=== PATIENT | female | born 1945 | race Caucasian/White ===

== ENCOUNTER → 2020-10-18 18:46 | Outpatient (CLI) | payer MEDICARE | END | disposition home or self-care (01) | LOC: D.LABREF 18:46 | PROVIDERS: ATTEND Orthopaedic Surgery | DX: M17.12 Unilateral primary osteoarthritis, left knee (principal) ==

== ENCOUNTER 2020-12-05 12:07 | Observation (INO) | payer MEDICARE, OTHER ==
[2020-11-28 11:11] LABS: BILIRUBIN NEGATIVE (NEGATIVE); KETONE NEGATIVE mg/dL (< 1+); NITRITE NEGATIVE (NEGATIVE); UROBILINOGEN NORMAL mg/dL (< 2)
[2020-11-28 12:57] LABS: BASOPHILS 0.8 % (0-2); EOSINOPHILS 1.2 % (0-7); HEMATOCRIT 40.7 % (36.0-48.0); HEMOGLOBIN 13.1 g/dL (12-16); LYMPHOCYTES 34.6 % (15-50); MCH 29.7 pg (26.0-34.0); MCHC 32.2 g/dL (31.0-37.0); MCV 92.5 fL (80.0-100.0); MEAN PLATELET VOLUME 8.8 fL (7.4-10.4); MONOCYTES 6.5 % (2-11); NEUTROPHILS 56.9 % (40-80); PLATELET COUNT 254 10x3/uL (130-400); RDW 13.7 % (11.5-14.5); WBC 9.3 10x3/uL (4.8-10.8)
[2020-11-28 13:05] LABS: CALC OSMOLALITY 281 mosm/kg (275-300); CALCIUM 8.8 mg/dL (8.5-10.1); CARBON DIOXIDE 27.1 mmol/L (21.0-32.0); CHLORIDE - SERUM 103 mmol/L (98-107); CREATININE - SERUM 0.6 mg/dL (0.6-1.3); GLUCOSE 142 mg/dL (74-106); POTASSIUM - SERUM 3.4 mmol/L (3.5-5.1); SODIUM 140 mmol/L (136-145); UREA NITROGEN 14 mg/dL (7-18); eGFR NON AFRICAN AMERICAN > 90 mL/min (90-120)
[2020-11-28 13:11] LABS: APTT 32.2 SECONDS (22.8-39.4); INR 1.04 (0.85-1.17); PROTIME 12.6 SECONDS (11.6-15.0)
[2020-12-05] VITALS (13 sets, daily range): BP systolic 119–159; BP diastolic 63–98; Ht 165.1 cm; Wt 90.9 kg
[~2020-12-05] VITALS: Ht 165.1 cm; Wt 90.9 kg
--- NOTE | 2020-12-05 10:43 | NUR ---
CAUTERY PAD PLACED ON RIGHT THIGH. PLASMA BLADE USED ON SETTTING 11/13. AQUAMANTYS USED ON SETTING 170. CAUTERY PAD LOT#[id number] EXP. 04/02/2022
[~2020-12-05 12:07] MED LIST: ASCORBIC ACID500 MG PO; CENTRUM SILVER1 EAC3 PO; FISH OIL 1,0001 CA1 PO; LISINOPRIL-HCT1 EAC7 PO; LISINOPRIL20 MG PO; LOPRESSOR25 MG PO; MERIBIN5 MG PO; METOPROLOL TART25 MG PO; OMEPRAZOLE20 M1 PO; PRAVASTATIN SOD10 MG PO
--- NOTE | 2020-12-05 13:35 | OP ---
PATIENT NAME: BEATRIZ HALL MEDICAL RECORD: [id number] :41 LOCATION:[id number] ADMISSION DATE:12/05/20 SURGEON: PORTER REGALADO DO DATE OF OPERATION: 12/05/2020 PROCEDURE PERFORMED: Left total knee arthroplasty. PREOPERATIVE DIAGNOSIS: Left knee osteoarthritis. POSTOPERATIVE DIAGNOSIS: Left knee osteoarthritis. INDICATIONS: Ms. Hall is a 75-year-old female who has had left knee pain and arthritis for quite some time. She has tried all manner nonoperative treatment including injections and all manner of conservative care to no avail. She wanted something done surgically as she was tired of dealing with the pain and it is affecting her activities of daily living. I informed her of the risks including infection, bleeding, damage to nerves, vessels, need for further surgery, continued pain, fracture, loss of motion of the knee, blood clots and even and she signed a consent. SURGEON: Porter Regalado DO DESCRIPTION OF PROCEDURE: The patient was taken to the operative suite, laid in supine position. After given a block and spinal by anesthesia given light sedation. She was given 2 grams of Ancef, 80 mg of gentamicin and a gram of TXA. The left lower extremity was then prepped and draped in sterile fashion. A timeout was performed, everyone was in agreeance with the correct side, site, patient and procedure. I then began by marking out the incision over the anterior knee and covered in Ioban. I used 10-blade scalpel, made careful dissection down through the skin to the capsule. Then using a fresh 10 blade, did a medial parapatellar approach through the capsule opening the knee, coagulating any vessels with Aquamantys. I then everted the patella, removed part of the fat pad and milled down the patella to put on a 32 patella. I then drilled the holes for that 32 patella. I then flexed the knee up, removed the ACL and then drilled into the femoral canal. I then used the intramedullary guide to cut the distal femur, removed that bone. I then exposed the proximal tibia using extramedullary guide and cut the proximal tibia 2 mm off the medial side and then removed that bone, brought the knee in extension, removed the menisci, 10 extension block fit very well and had good varus valgus stress and it fit very well. I then flexed the knee up and sized the femur to be an 8. We first tried a 9 block, but I did not cut enough. Then used an 8 and cut through it and used a 4-in-1 cutting block, cut the distal femur chamfer cuts anteriorly and posteriorly, and then sized the tibia after removing that bone to be E. I then pinned that into place and a trialled the femur, put the femur on and it ended up being an 8 narrow. I then put a 10 poly in between, brought the knee in extension. It was very stable in flexion, extension and mid flexion. We then removed that tibial tray poly trial and then drilled the lug holes in the femur, removed the femoral trial and then reamed and punched through the tibial tray and then put extra holes in the tibia. I then irrigated out. While the cement mixed, put the cement into the tibia and on the implant, impacted the tibial implant into place, removed excess cement. I then impacted the femur on, put a trial 10 poly in between, brought the knee in extension, irrigated out the patella, put cement in the patella and on the implant, squeezed it into place, removed the excess cement from it. I then put in 10% povidone-iodine and 500 mL of normal saline solution and injected joint cocktail. I then irrigated one OPERATIVE REPORT [id number] RAFAEL,BEATRIZ more time. The cement had hardened and with a 10 it was very stable in varus valgus stress in flexion, mid flexion and extension. I removed the poly trial and put the actual poly in and locked into place. I then trialed again, it was a very well fit with a MC bearing. I then put in Brigette and vancomycin and tobramycin powder, closed the capsule with #1 Vicryl in [id number]-eb-[id number] fashion. Riky Scott, certified respiratory therapist then closed over that with #1 Stratafix and then closed the skin with 2-0 Vicryl in inverted interrupted fashion and put on a ZipLine, Adaptic, 4 x 4s, ABD, Webril, Rolf wrap and ALEXANDRU hose stockings. She was awakened and taken to recovery and given another gram of TXA. She was in stable condition. BLOOD LOSS: Approximately 200 mL. COMPLICATIONS: None. TRANSINT:[id number] Voice Confirmation ID: [id number] DOCUMENT ID: [id number] PORTER REGALADO DO at 1335 CC: [id number] DICTATION DATE: 12/05/20 1149 BEER RUNNER: 12/05/20 1324 ADM IN [facility] [address] [place] [address]
--- NOTE | 2020-12-05 20:00 | NUR ---
ALERT RESTING IN BED REPORTS NUMBNESS TO LEFT LEG, CPM IN USE, HAS PERWICK IN PLACE, SEE SHIFT ASSESSMENT, DENIES NEEDS AT THIS TIME, CALL LIGHT IN REACH
[2020-12-06 04:43] VITALS: BP 145/54
[2020-12-06 06:20] LABS: BASOPHILS 0.3 % (0-2); EOSINOPHILS 0.2 % (0-7); HEMATOCRIT 32.5 % (36.0-48.0); HEMOGLOBIN 10.7 g/dL (12-16); LYMPHOCYTES 14.9 % (15-50); MCH 29.9 pg (26.0-34.0); MCHC 32.8 g/dL (31.0-37.0); MEAN PLATELET VOLUME 9.4 fL (7.4-10.4); MONOCYTES 9.7 % (2-11); NEUTROPHILS 74.9 % (40-80); PLATELET COUNT 235 10x3/uL (130-400); RBC 3.57 10x6/uL (4.00-5.40); RDW 13.6 % (11.5-14.5); WBC 11.3 10x3/uL (4.8-10.8)
[2020-12-06 06:41] LABS: ALKALINE PHOSPHATASE 81 U/L (30-120); ALT (SGPT) 42 U/L (10-68); CALC OSMOLALITY 284 mosm/kg (275-300); CALCIUM 8.2 mg/dL (8.5-10.1); CARBON DIOXIDE 25.7 mmol/L (21.0-32.0); CHLORIDE - SERUM 106 mmol/L (98-107); CREATININE - SERUM 0.7 mg/dL (0.6-1.3); GLUCOSE 127 mg/dL (74-106); SODIUM 142 mmol/L (136-145); UREA NITROGEN 13 mg/dL (7-18); eGFR NON AFRICAN AMERICAN 86 mL/min (90-120)
--- NOTE | 2020-12-06 07:58 | NUR ---
ALERT AND ORIENTED. ASSESSMENT COMPLETE. DENIES NEEDS. BED LOW. CALL CHEUNG AND PERSONAL ITEMS IN REACH. WILL CONTINUE TO MONITOR.
[2020-12-06 08:40] VITALS: BP 146/66
--- NOTE | 2020-12-06 10:00 | NUR ---
RESTING IN BED. DENIES NEEDS. WILL CONTINUE TO MONITOR.
[2020-12-06] MEDS ORDERED: ELIQUIS2.5 MG PO (12:50)
[2020-12-06] MEDS ORDERED: HYDROCODON-ACE1 EA10 PO (12:51)
[2020-12-06 12:57] VITALS: BP 157/66
--- NOTE | 2020-12-06 14:07 | MORECARE ---
CASE MANAGEMENT DISCHARGE SUMMARY PATIENT: BEATRIZ HALL UNIT: [id number] ADM DATE: 12/05/20 AGE: 75 : 43 SEX: F ROOM/BED: D.[facility] AUTHOR: KAITLIN,DOC PHYSICIAN: REFERRING PHYSICIAN: JUANA REGALADO DO DATE OF SERVICE: 12/06/20 Case Management Discharge Planning Summary COMMENTS ENTERED DATE: 12/06/20 13:59 CT COMMENT TYPE: Discharge Planning REVIEWER: Kinjal Campbell CM MET WITH PATIENT AND FAMILY TO DISCUSS DISCHARGE PLANNING NEEDS. PATIENT HAS CPM, WALKER, BSC DELIVERED. PATIENT WOULD LIKE OUT PATIENT THERAPY WITH [facility]. APPOINTMENT MADE FOR THURSDAY AT 3PM. AFTER PATIENT AMBULATES WITH THERAPY THEN SHE WILL BE READY TO DC. HER FAMILY IS HERE FOR TRANSPORT. ORDERS FAXED TO [facility]. CM TO FOLLOW AND ASSIST NEEDED. DCP REVIEW SUMMARY ANTICIPATED D/C DATE: EXPECTED LOS : CASE STATUS: DCP Initiated INITIAL REVIEW: 12/05/2020 INITIAL REVIEWER: Kinjal Campbell FINAL DISCHARGE DISPOSITION: : FINAL REVIEWER: FINAL REVIEW DATE: DCP Focus Questions & Answers QUESTION: ANSWER : PATIENT: BEATRIZ HALL ENCOUNTER: [id number] MEDICAL RECORD#: [id number] ADMISSION DATE: 12/05/2020 DISCHARGE DATE: ATTENDING MD: JUANA ENGEL : AGE: 75 MARITAL STATUS: D DC PLAN ID: [id number] FACILITY: [facility] PRINTED ON: 12/06/20 14:07 CT All edits/amendments must be made on the electronic document DICTATION DATE: 12/06/201406 STAMPER BLOCKER: CHRISTINA 12/06/201406 RPT#: [id number] DC DATE: STATUS: ADM IN [facility] [address] [place] [address] END OF REPORT
--- NOTE | 2020-12-06 14:42 | NUR ---
DC EDUCATION PROVIDED BOTH WRITTEN AND VERBAL. VERBALIZED UNDERSTANDING. DENIES FURTHER QUESTIONS. IV REMOVED FROM LFA WITH TIP INTACT. DRSG CHANGED TO LEFT KNEE PER ORDER AND X 5 DRSGS SENT HOME WITH PATIENT. PATIENT DC HOME WITH FAMILY WITH ALL BELONGINGS.
--- NOTE | 2020-12-06 14:59 | MORECARE ---
CASE MANAGEMENT DISCHARGE SUMMARY PATIENT: BEATRIZ HALL UNIT: [id number] ADM DATE: 12/05/20 AGE: 75 : 43 SEX: F ROOM/BED: D.[facility] AUTHOR: KAITLIN,DOC PHYSICIAN: REFERRING PHYSICIAN: JUANA REGALADO DO DATE OF SERVICE: 12/06/20 Case Management Discharge Planning Summary COMMENTS ENTERED DATE: 12/06/20 13:59 CT COMMENT TYPE: Discharge Planning REVIEWER: Kinjal Campbell CM MET WITH PATIENT AND FAMILY TO DISCUSS DISCHARGE PLANNING NEEDS. PATIENT HAS CPM, WALKER, BSC DELIVERED. PATIENT WOULD LIKE OUT PATIENT THERAPY WITH [facility]. APPOINTMENT MADE FOR THURSDAY AT 3PM. AFTER PATIENT AMBULATES WITH THERAPY THEN SHE WILL BE READY TO DC. HER FAMILY IS HERE FOR TRANSPORT. ORDERS FAXED TO [facility]. CM TO FOLLOW AND ASSIST NEEDED. DCP REVIEW SUMMARY ANTICIPATED D/C DATE: EXPECTED LOS : CASE STATUS: DCP Initiated INITIAL REVIEW: 12/05/2020 INITIAL REVIEWER: Kinjal Campbell FINAL DISCHARGE DISPOSITION: : FINAL REVIEWER: FINAL REVIEW DATE: DCP Focus Questions & Answers QUESTION: ANSWER : PATIENT: BEATRIZ HALL ENCOUNTER: [id number] MEDICAL RECORD#: [id number] ADMISSION DATE: 12/05/2020 DISCHARGE DATE: 12/06/2020 ATTENDING MD: JUANA ENGEL : AGE: 75 MARITAL STATUS: D DC PLAN ID: [id number] FACILITY: [facility] PRINTED ON: 12/06/20 14:59 CT All edits/amendments must be made on the electronic document DICTATION DATE: 12/06/20 145 BUS CLEANER: CHRISTINA 12/06/20 1459 RPT#: [id number] DC DATE:12/06/20 STATUS: DIS IN [facility] [address] [place] [address] END OF REPORT
--- NOTE | 2020-12-07 16:33 | MORECARE ---
CASE MANAGEMENT DISCHARGE SUMMARY PATIENT: BEATRIZ HALL UNIT: [id number] ADM DATE: 12/05/20 AGE: 75 : 43 SEX: F ROOM/BED: D.[facility]5 AUTHOR: KAITLIN,DOC PHYSICIAN: REFERRING PHYSICIAN: JUANA REGALADO DO DATE OF SERVICE: 12/07/20 Case Management Discharge Planning Summary COMMENTS ENTERED DATE: 12/06/20 13:59 CT COMMENT TYPE: Discharge Planning REVIEWER: Kinjal Campbell CM MET WITH PATIENT AND FAMILY TO DISCUSS DISCHARGE PLANNING NEEDS. PATIENT HAS CPM, WALKER, BSC DELIVERED. PATIENT WOULD LIKE OUT PATIENT THERAPY WITH [facility]. APPOINTMENT MADE FOR THURSDAY AT 3PM. AFTER PATIENT AMBULATES WITH THERAPY THEN SHE WILL BE READY TO DC. HER FAMILY IS HERE FOR TRANSPORT. ORDERS FAXED TO [facility]. CM TO FOLLOW AND ASSIST NEEDED. DCP REVIEW SUMMARY ANTICIPATED D/C DATE: EXPECTED LOS : CASE STATUS: DCP Initiated INITIAL REVIEW: 12/05/2020 INITIAL REVIEWER: Kinjal Campbell FINAL DISCHARGE DISPOSITION: : FINAL REVIEWER: FINAL REVIEW DATE: DCP Focus Questions & Answers QUESTION: ANSWER : PATIENT: BEATRIZ HALL ENCOUNTER: [id number] MEDICAL RECORD#: [id number] ADMISSION DATE: 12/05/2020 DISCHARGE DATE: 12/06/2020 ATTENDING MD: JUANA ENGEL : AGE: 75 MARITAL STATUS: D DC PLAN ID: [id number] FACILITY: [facility] PRINTED ON: 12/07/20 16:33 CT All edits/amendments must be made on the electronic document DICTATION DATE: 12/07/20 1633 IMAGING TECHNICIAN: CHRISTINA 12/07/20 1633 RPT#: [id number] DC DATE:12/06/20 STATUS: DIS IN [facility] [address] [place] [address] END OF REPORT
== END 2020-12-06 14:55 | disposition home or self-care (01) ==
LOC: D.OPS 12:07 → D.MS 12:09 → OBSVTIME 12:10 → D.OPS 12:55 → D.MS 12-06 14:55
PROVIDERS: Family Medicine; ADMIT Orthopaedic Surgery; ATTEND Orthopaedic Surgery
DX: M17.12 Unilateral primary osteoarthritis, left knee (principal); K21.9 Gastro-esophageal reflux disease without esophagitis; I10 Essential (primary) hypertension